=== PATIENT | male | born 1955 | race Caucasian/White ===

== ENCOUNTER 2016-06-23 10:07 | Day surgery (SDC) | payer OTHER ==
[~2016-06-23 10:07] MED LIST: ACETAMINOPHEN 1000MG/100 ML PREMIX IV ONE; CEFAZOLIN 2 Gram 50 ML IVPB ONE
[2016-06-23 10:27] LABS: ANION GAP 11.8 (7-16); BLOOD UREA NITROGEN 15 mg/dL (9-20); CARBON DIOXIDE 26.2 mmol/L (22-30); EST GLOMERULAR FILTRATION RATE > 60 ml/min; GLUCOSE,RANDOM 88 mg/dL (70-110)
--- NOTE | 2016-06-23 13:57 | Operative Note ---
DATE OF SURGERY: 06/23/2016. SURGEON: Colby Francis D.O. REFERRING PHYSICIAN: Sinan Quezada D.O. PREOPERATIVE DIAGNOSES: TEAR OF THE LEFT BICEPS TENDON. POSTOPERATIVE DIAGNOSES: PARTIAL TEAR OF THE BICEPS TENDON, LEFT ELBOW. OPERATIVE PROCEDURE: Debridement of the biceps tendon, left elbow. DESCRIPTION OF PROCEDURE: This 61-year-old male was taken to the operating room and was placed in the supine position on the operating room table. General anesthesia was induced and the left upper extremity was elevated. It was prepped with Hibiclens and draped in the usual sterile fashion. It was exsanguination and the tourniquet inflated to 250 mm Hg. An "S" type incision was made in the antecubital fossa, dissecting down through the skin and subcutaneous tissue. Hemostasis was obtained with the electrocautery. The radial nerve was easily identified. The biceps tendon was identified. We dissected down into its normal canal and found partial disruption of the biceps tendon, but it did not appear to be completely disrupted. I felt palpably intact tendon down as far as I could feel. I felt that transection of this tendon for repair would not be the appropriate treatment. Therefore the debridement of the torn portion of the tendon was performed to healthy-appearing tendon. It was not further disturbed, and the wound was irrigated. The tourniquet was released. Hemostasis was obtained with the electrocautery. The subcutaneous tissue was closed with 4-0 Vicryl and the skin was closed with a running 4-0 nylon suture. Sterile dressings were applied. The patient was taken to the recovery room in satisfactory condition. GROSS PATHOLOGY: This patient demonstrated a partial-thickness tear of the biceps tendon. The MRI suggested a full-thickness defect, but I did not see that at the time of the surgery. The tendon was not displaced from its normal position. I did not see any proximal fragment of tendon whatsoever. I felt that debridement of this tendon was the appropriate treatment, and that is what was performed as described above. Colby Francis D.O. Date Time Job Number: [id number] MTDD
[2016-06-23] MEDS ORDERED: KETOROLAC 30 MG/ML VIAL IVP ONE (14:00)
[2016-06-23] MEDS ORDERED: FENTANYL PF 100MCG/2ML VIAL IV ONE (14:00)
[2016-06-23] MEDS ORDERED: MIDAZOLAM HCL 2MG/2ML VIAL IV ONE (14:00)
[2016-06-23] MEDS ORDERED: LIDOCAINE 2% MDV (20MG/ML) 20ML VIAL IV ONE (14:00)
[2016-06-23] MEDS ORDERED: SEVOFLURANE 250 ML INH ONE (14:00)
[2016-06-23] MEDS ORDERED: ONDANSETRON HCL IV 4 MG/2 ML VIAL IVP ONE (14:00)
[2016-06-23] MEDS ORDERED: PROPOFOL 10 MG/ML VIAL IV ONE (14:00)
== END 2016-06-23 13:20 | disposition home or self-care (01) ==
LOC: SUR 10:07
PROVIDERS: ATTEND Orthopaedic Surgery
DX: S46.212A Strain of muscle, fascia and tendon of other parts of biceps, left arm, initial encounter (principal)
CPT/HCPCS: 24342; 01710; 80048; J1885; J2405; J3010; J0690